=== PATIENT | female | born 1960 | race Caucasian/White ===

== ENCOUNTER 2021-08-16 12:01 | Emergency (ER) | payer OTHER, SELFPAY ==
--- NOTE | ~2021-08-16 | XR_ITS ---
EXAMINATION: XR foot LT min 3V, XR ankle LT min 3V DATE: 08/16/2021 12:29 INDICATION: Left foot and ankle pain post fall from ladder TECHNIQUE: 1. Anteroposterior, mortise, additional oblique and lateral view of the left ankle were obtained. 2. Dorsoplantar, two oblique and lateral views of the left foot were obtained. COMPARISON: None. FINDINGS: Alignment of the left foot and ankle is normal. No fracture or osteochondral lesion. Mild osteoarthri tis at the left ankle, calcaneocuboid, first metatarsophalangeal and several tarsal metatarsal and in terphalangeal joints. Diffuse soft tissue tissue swelling about the foot and ankle. No left ankle yoselin nt effusion. IMPRESSION: 1. 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 No acute osseous abnormality. Reviewed, dictated and finalized at location A. IMPRESSION: 1. 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 No acute osseo us abnormality.
--- NOTE | 2021-08-16 12:12 | ED.LOWEXIN ---
HPI - Extremity Injury (Lower) General Chief Complaint: Extremity Injury, Lower Stated Complaint: left foot pain Time Seen by Provider: 08/16/21 12:12 Source: patient Mode of arrival: ambulatory Limitations: no limitations History of Present Illness HPI Narrative: Ms. Martin is a 61-year-old female patient presenting to the clinic today with complaints of left foot/ankle pain after falling 5 foot from a ladder 2 days ago. 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 Has significant bruising and swelling to the left foot and ankle and is having difficulty walking due to pain. Related Data Home Medications Medication Instructions Recorded Confirmed albuterol sulfate 2 puff INHALATION DIRECTED 08/16/21 08/16/21 atorvastatin 40 mg PO DAILY 08/16/21 08/16/21 bupropion HCl 75 mg PO BID 08/16/21 08/16/21 sacubitril-valsartan [Entresto] 1 tablet PO DIRECTED 08/16/21 08/16/21 Allergies Allergy/AdvReac Type Severity Reaction Status Date / Time No Known Allergies Allergy Verified 08/16/21 12:16 Review of Systems Review of Systems: Pertinent positives per HPI. Patient denies any fever, chills, rash, headache, visual changes, dizziness, cough, runny nose, sore throat, shortness of breath, chest pain, palpitations, nausea, vomiting, diarrhea, constipation, abdominal pain, or any urinary issues. PMFSH Comments At the time of my signature, I reviewed and agree with the nursing past medical, surgical, social, and family history. There is no relevant family history pertinent to the patient complaint. Exam Narrative: General: Well-developed, well nourished, in no apparent distress Head: Normocephalic, atraumatic. Cardio: Regular rate and rhythm, s1 and s2 normal, no murmur appreciated. Resp: Clear to auscultation bilaterally, no rhonchi, rales, wheezing or rubs. Musculoskeletal: No deformity, swelling to the left foot/left ankle tender to palpation, no pain with dorsiflexion or plantar flexion, mild discomfort with valgus and varus stress testing of the foot, grossly normal range of motion, muscle strength strong and equal, peripheral pulse strong, no cyanosis, sitting in wheelchair Course Course Emergency Course: Portions of this record may have been created with voice recognition software. Level of Care: Express Care Visit Vital Signs Vital signs: Vital signs reviewed MDM - Extremity Injury (Lower) MDM Narrative Medical decision making narrative: At the time of assessment patient is resting comfortably in the wheelchair. X-rays negative for any fractures or malalignment of the foot or left ankle. I suspect that the patient has a foot sprain with a soft tissue tissue injury. Recommend rest, ice, compression, and elevation. We will give crutches to allow her time to heal. Supportive measures discussed and patient voiced understanding of discharge instructions and agrees to treatment plan. Differential Diagnosis Differential diagnosis: Likely ankle sprain and strain, fracture of toe, ankle fracture and other (Foot fracture, contusion,) Discharge Plan Discharge Clinical Impression: Foot sprain Qualifiers: Encounter type: initial encounter Laterality: left Qualified Code(s): S93.602A - Unspecified sprain of left foot, initial encounter Patient Disposition: Home, Self-Care Condition: Stable Instructions: Antibiotic Form, Foot Sprain (ED) Additional Instructions: X-rays negative for any fracture or malalignment of the foot or ankle. Rest, ice, compress, and elevate Use crutches x1 week and bear weight gradually Follow-up with your PCP in 3 to 5 days if symptoms persist or sooner if they worsen Prescriptions: No Action atorvastatin 40 mg tablet 40 mg PO DAILY RF: 0 bupropion HCl 75 mg tablet 75 mg PO BID RF: 0 albuterol sulfate 90 mcg/actuation HFA aerosol i
[2021-08-16 12:14] VITALS: BP 139/74; PULSE 108; RESP 16; TEMP 36.6; O2SAT 99
== END 2021-08-16 12:53 | disposition home or self-care (01) ==
PROVIDERS: Emergency Provider Nurse Practitioner Family
DX: S93.602A Unspecified sprain of left foot, initial encounter (principal); W11.XXXA Fall on and from ladder, initial encounter; I25.10 Atherosclerotic heart disease of native coronary artery without angina pectoris; J44.9 Chronic obstructive pulmonary disease, unspecified; I50.9 Heart failure, unspecified
CPT/HCPCS: 73610; 73630; 99213; G0463